=== PATIENT | male | born 1950 | race Caucasian/White ===

== ENCOUNTER 2020-03-27 21:10 | Inpatient (IN) ==
[2020-03-28] MEDS ORDERED: Naloxone 0.4 MG/ML INJ IVP PRN ×2 (02:50→05:11)
[2020-03-28] MEDS ORDERED: Ondansetron ODT 4 MG TAB.RAPDIS SL PRN (05:11)
[2020-03-28] MEDS ORDERED: Acetaminophen 325 MG TABLET PO PRN (05:11)
[2020-03-28] MEDS ORDERED: Furosemide 40 MG/4 ML VIAL IVP ONE (05:16)
[2020-03-28] MEDS ORDERED: Ipratropium/Albuterol Neb 3 ML IH ONE (05:18)
[2020-03-28] MEDS ORDERED: Perflutren Lipid Microsphere 1.3 ML in 0.9 % Sodium Chloride 8.7 ML IVP PRN (05:19)
[2020-03-28 06:28] LABS: Bacteria,Urine Few per hpf (None-Few); Bilirubin,Urine Small (Negative); Blood,Urine Negative (Negative); Clarity,Urine Turbid (Clear); Color,Urine Dark-Yellow (Yellow); Glucose,Urine (UA) Normal (Normal); Hyaline Casts,Urine Many per lpf (None Seen); Ketones,Urine Negative (Negative); Leukocyte Esterase,Urine Negative (Negative); Mucus,Urine Few per lpf (None-Few); Nitrite,Urine Negative (Negative); PH,Urine 5.5 pH Units (5.0-8.0); Protein,Urine 30 mg/dL (Neg-Trace); RBC,Urine 0-3 per hpf (0-3); Specific Gravity,Urine 1.025 (1.010-1.025); Squamous Epithelial Cell,Urine Few per hpf (None-Few)
[2020-03-28 06:46] LABS: ABG Base Excess -4 mEq/L (-2 to 3); ABG HCO3 20 mEq/L (21-27); ABG Oxygen Saturation 96 % (95-98); ABG PCO2 35 mmHg (35-45); ABG PH 7.37 pH Units (7.32-7.45); ABG PO2 82 mmHg (85-104); ABG TCO2 21 mEq/L (20-26)
[2020-03-28] MEDS ORDERED: cefTRIAXone 2,000 MG in Water for inj. (sterile) 20 ML IVP SCH (07:00)
[2020-03-28 07:12] LABS: Immature Granulocytes % 3.4 % (0-4); Platelet Count 270 K/mcL (140-400)
[2020-03-28 07:13] LABS: Basophils # 0.1 K/mcL (0.0-0.2); Basophils % 0.4 %; Hematocrit 45.8 % (37.5-50.1); Lymphocytes # 0.6 K/mcL (0.6-4.6); Mean Corpuscular HGB Conc 32.8 g/dL (31.6-35.5); Mean Corpuscular Hemoglobin 30.5 pg (28.0-33.3); Mean Corpuscular Volume 93.3 fL (83.0-100.0); Mean Platelet Volume 9.7 fL (9.4-12.4); Monocytes % 6.2 %; Neutrophils # 27.7 K/mcL (1.6-8.9); Red Blood Count 4.91 M/mcL (4.19-5.50)
[2020-03-28 07:16] LABS: INR 3.2; Prothrombin Time 36.1 Seconds (9.4-12.1)
[2020-03-28 07:26] LABS: White Blood Count 31.5 K/mcL (4.3-11.1)
[2020-03-28 07:30] LABS: Platelet Estimate Normal (Normal)
[2020-03-28 07:31] LABS: Anisocytosis 1+ (Not Present); Toxic Granulation Present (Not Present)
[2020-03-28 08:01] LABS: Albumin 2.7 g/dL (3.5-5.7); Albumin/Globulin Ratio 0.8 (1.1-2.2); Bilirubin,Total 4.4 mg/dL (0.3-1.0); Calcium 8.6 mg/dL (8.6-10.3); Globulin 3.2 g/dL (2.4-3.5); Phosphorous 5.9 mg/dL (2.7-4.5); Potassium 6.4 mEq/L (3.5-5.1); Total Protein 5.9 g/dL (6.4-8.9)
[2020-03-28] MEDS: Nystatin Cream 15 GM TUBE TP SCH ×2 (08:18→21:59)
[2020-03-28] MEDS ORDERED: Calcium Gluconate 1gm/50mL 1 GM/50 ML BAG IVPB ONE (08:53)
[2020-03-28 09:10] LABS: Magnesium 2.4 mg/dL (1.6-2.6)
[2020-03-28] MEDS ORDERED: Isovue-370 500 ML BOTTLE IVP ONE ×5 (09:18→10:37)
[2020-03-28 09:37] LABS: Hepatitis B Surface Antigen Nonreactive (Nonreactive)
[2020-03-28] MEDS ORDERED: levoFLOXacin 750 MG/150 ML 750 MG/150 ML BAG IVPB SCH (09:45)
[2020-03-28] MEDS ORDERED: Vancomycin (wt based) 1,000 MG VIAL IVPB SCH (10:00)
[2020-03-28 10:06] LABS: Hepatitis C Virus Antibody Nonreactive (Nonreactive)
[2020-03-28 10:07] LABS: Hepatitis A Antibody IgM Nonreactive (Nonreactive); Hepatitis B Core IgM Nonreactive (Nonreactive)
[2020-03-28] MEDS ORDERED: Vancomycin 2,000 MG/520 ML IV.SOLN IVPB ONE (10:17)
[2020-03-28 10:23] LABS: Albumin 2.7 g/dL (3.5-5.7); Calcium 8.7 mg/dL (8.6-10.3); Phosphorous 6.1 mg/dL (2.7-4.5); Potassium 6.4 mEq/L (3.5-5.1)
[2020-03-28] MEDS ORDERED: *HR* Heparin 10,000 UNIT/10 ML VIAL IV PRN (10:23)
[2020-03-28] MEDS ORDERED: 0.9 % Sodium Chloride 250 ML IVC PRN (10:23)
[2020-03-28] MEDS ORDERED: Vancomycin 1 EACH in 0.9 % Sodium Chloride 250 ML IVPB SCH (11:00)
[2020-03-28] MEDS ORDERED: Ringers Solution, Lactated 1,000 ML IVC ONE (11:18)
[2020-03-28] MEDS ORDERED: Ringers Solution, Lactated 1,000 ML ONE (11:22)
[2020-03-28] MEDS ORDERED: Albumin Human 5% 12.5 GM/250 ML IV.SOLN ONE (11:23)
[2020-03-28] MEDS ORDERED: Albumin 25% 25gram/100mL 25 GM/100 ML IV.SOLN IVC SCH (11:30)
[2020-03-28] MEDS ORDERED: *HR* Norepinephrine 4 MG/4 ML VIAL IVC ONE (11:45)
[2020-03-28] MEDS ORDERED: 0.9 % Sodium Chloride 250 ML ONE (11:45)
[2020-03-28] MEDS ORDERED: Artificial Tears SOLN 15 ML BOTTLE BOTH EYES PRN (11:47)
[2020-03-28 12:51] LABS: ABG Base Excess -7 mEq/L (-2 to 3); ABG HCO3 19 mEq/L (21-27); ABG Oxygen Saturation 100 % (95-98); ABG PCO2 38 mmHg (35-45); ABG PH 7.31 pH Units (7.32-7.45); ABG PO2 354 mmHg (85-104); ABG TCO2 20 mEq/L (20-26); Blood Gas Modality AF; Blood Gas VT 500 cc
[2020-03-28] MEDS ORDERED: *HR* Heparin 5,000 UNIT/ML VIAL ONE (14:05)
[2020-03-28] MEDS ORDERED: 0.9 % Sodium Chloride 1,000 ML PRIME ONE ×2 (14:06)
[2020-03-28] MEDS ORDERED: *HR* Alteplase (Cathflo) 2 MG VIAL IVP PRN (14:06)
[2020-03-28] MEDS ORDERED: 0.9 % Sodium Chloride 1,000 ML PRIME SCH (14:15)
[2020-03-28] MEDS: levoFLOXacin 750 MG/150 ML 750 MG/150 ML BAG IVPB SCH (14:57)
[2020-03-28] MEDS: Piperacillin/Tazobactam 3.375 GM in 0.9 % Sodium Chloride Mini Bag 100 ML IVPB SCH ×2 (14:58→20:25)
[2020-03-28] MEDS: FentaNYL (PF) 1,000 MCG/100 ML IV.SOLN IVC SCH ×2 (14:58→20:25)
[2020-03-28 15:25] LABS: Bilirubin,Urine Small (Negative); Blood,Urine Large (Negative); Clarity,Urine Ex.Turbid (Clear); Color,Urine Dark-Yellow (Yellow); Glucose,Urine (UA) Normal (Normal); Ketones,Urine Negative (Negative); Leukocyte Esterase,Urine Large (Negative); Nitrite,Urine Negative (Negative); PH,Urine 5.5 pH Units (5.0-8.0); Protein,Urine 100 mg/dL (Neg-Trace); Specific Gravity,Urine 1.022 (1.010-1.025)
[2020-03-28] MEDS: Pantoprazole 40 MG VIAL IVP SCH (15:27)
[2020-03-28] MEDS: Artificial Tears SOLN 15 ML BOTTLE BOTH EYES SCH ×4 (15:27→23:02)
[2020-03-28 15:28] LABS: Creatinine,Urine 230 mg/dL; Protein/Creatinine Ratio,Urine 0.72 mg/mg (0.00-0.20); Sodium, Urine 18.1 mEq/L
[2020-03-28 15:36] LABS: Amphetamine Screen,Urine Negative ng/mL (Cutoff=1000); Barbiturate Screen,Urine Negative ng/mL (Cutoff=200); Benzodiazepines Screen,Urine Negative ng/mL (Cutoff=200); Cannabinoid Screen,Urine Negative ng/mL (Cutoff = 50); Cocaine Screen,Urine Negative ng/mL (Cutoff= 300); Opiate Screen,Urine Negative ng/mL (Cutoff=300); Phencyclidine Screen,Urine Negative ng/mL (Cutoff=25)
[2020-03-28 15:37] LABS: Rheumatoid Factor < 10 IU/mL (Less than 14)
[2020-03-28 15:44] LABS: Calcium 7.9 mg/dL (8.6-10.3); Potassium 6.5 mEq/L (3.5-5.1)
[2020-03-28 15:48] LABS: Hepatitis B Surface Antibody < 3.10 mIU/mL
[2020-03-28 16:16] LABS: Hyaline Casts,Urine Few per lpf (None Seen)
[2020-03-28 16:17] LABS: Bacteria,Urine Many per hpf (None-Few); RBC,Urine 30-50 per hpf (0-3); Renal Epithelial Cells,Urine Few per hpf (None-Few); Squamous Epithelial Cell,Urine Few per hpf (None-Few); Transitional Epi Cells,Urine Moderate per hpf (None-Few); WBC,Urine TNTC per hpf (0-3)
[2020-03-28 16:30] LABS: Influenza A PCR Negative (Negative); Influenza B PCR Negative (Negative); Resp. Syncytial Virus PCR Negative (Negative)
[2020-03-28 16:43] LABS: SARS-CoV-2 by PCR (In House) Negative (Negative)
[2020-03-28] MEDS ORDERED: *HR* Heparin 5,000 UNIT/ML VIAL SQ SCH (18:00)
[2020-03-28] MEDS: Dexmedetomidine HCl 400 MCG/100 ML MLS IVC SCH ×2 (19:15→20:26)
[2020-03-28] MEDS: Norepinephrine 4 MG/254 ML IV.SOLN IVC SCH (19:20)
[2020-03-28 20:20] LABS: Complement C3 68 mg/dL (87-200)
[2020-03-28] MEDS: Chlorhexidine Rinse 15 ML MOUTHWASH MM SCH (20:25)
[2020-03-28] MEDS: 0.9 % Sodium Chloride 1,000 ML PRIME SCH ×2 (20:35→20:46)
[2020-03-28] MEDS: PrismaSATE BGK 4/2.5 5,000 ML CRRT SCH ×4 (20:47→23:52)
[2020-03-28] MEDS ORDERED: *HR* Etomidate 20 MG/10 ML AMPUL IVP ONE (22:34)
[2020-03-28] MEDS ORDERED: *HR* Rocuronium Bromide 50 MG/5 ML VIAL IVP ONE (22:34)
[2020-03-29] MEDS: PrismaSATE BGK 4/2.5 5,000 ML CRRT SCH ×12 (03:01→22:38)
[2020-03-29] MEDS: FentaNYL (PF) 1,000 MCG/100 ML IV.SOLN IVC SCH ×3 (03:02→17:51)
[2020-03-29] MEDS: Artificial Tears SOLN 15 ML BOTTLE BOTH EYES SCH ×6 (03:07→23:02)
[2020-03-29] MEDS: Piperacillin/Tazobactam 3.375 GM in 0.9 % Sodium Chloride Mini Bag 100 ML IVPB SCH ×3 (03:07→19:28)
[2020-03-29 03:33] LABS: ABG Base Excess 0 mEq/L (-2 to 3); ABG HCO3 26 mEq/L (21-27); ABG Oxygen Saturation 98 % (95-98); ABG PCO2 46 mmHg (35-45); ABG PH 7.36 pH Units (7.32-7.45); ABG PO2 106 mmHg (85-104); ABG TCO2 27 mEq/L (20-26); Blood Gas Modality ASSIST CONTROL; Blood Gas VT 500 cc
[2020-03-29 03:38] LABS: Basophils # 0.1 K/mcL (0.0-0.2); Basophils % 0.5 %; Hematocrit 39.3 % (37.5-50.1); Immature Granulocytes % 3.4 % (0-4); Lymphocytes # 1.1 K/mcL (0.6-4.6); Lymphocytes % 4.9 %; Mean Corpuscular HGB Conc 31.8 g/dL (31.6-35.5); Mean Corpuscular Hemoglobin 29.3 pg (28.0-33.3); Mean Corpuscular Volume 92.3 fL (83.0-100.0); Mean Platelet Volume 9.8 fL (9.4-12.4); Monocytes # 1.2 K/mcL (0.0-1.3); Monocytes % 5.5 %; Neutrophils # 18.7 K/mcL (1.6-8.9); Platelet Count 175 K/mcL (140-400); Red Blood Count 4.26 M/mcL (4.19-5.50); Red Cell Distribution Width 14.6 % (11.5-14.5); Segmented Neutrophils % 85.7 %; White Blood Count 21.8 K/mcL (4.3-11.1)
[2020-03-29 03:48] LABS: Hemoglobin 12.5 g/dL (12.9-16.9)
[2020-03-29 04:27] LABS: Albumin 2.6 g/dL (3.5-5.7); Albumin/Globulin Ratio 1.1 (1.1-2.2); Bilirubin,Total 4.2 mg/dL (0.3-1.0); Calcium 7.8 mg/dL (8.6-10.3); Globulin 2.3 g/dL (2.4-3.5); Total Protein 4.9 g/dL (6.4-8.9)
[2020-03-29] MEDS ORDERED: Vancomycin 2,000 MG/520 ML IV.SOLN IVPB SCH (06:00)
[2020-03-29] MEDS: Pantoprazole 40 MG VIAL IVP SCH (07:44)
[2020-03-29] MEDS: Nystatin Cream 15 GM TUBE TP SCH ×2 (07:44→19:31)
[2020-03-29] MEDS: Chlorhexidine Rinse 15 ML MOUTHWASH MM SCH ×2 (07:44→19:49)
[2020-03-29] MEDS: Dexmedetomidine HCl 400 MCG/100 ML MLS IVC SCH ×4 (09:10→19:29)
[2020-03-29] MEDS: Norepinephrine 4 MG/254 ML IV.SOLN IVC SCH ×4 (11:35→22:01)
[2020-03-29] MEDS ORDERED: 0.9 % Sodium Chloride 500 ML ONE (14:30)
[2020-03-29] MEDS ORDERED: *HR* Heparin 5,000 UNIT/ML VIAL ONE (14:37)
[2020-03-29] MEDS ORDERED: Albumin Human 5% 25.0 GM/500 ML IV.SOLN ONE (15:13)
[2020-03-29] MEDS: *HR* Heparin 5,000 UNIT/ML VIAL CRRT PRN ×2 (15:25→15:29)
[2020-03-29] MEDS: Albumin Human 5% 12.5 GM/250 ML IV.SOLN IVC SCH ×2 (15:32→15:45)
[2020-03-29] MEDS: Vasopressin 40 UNIT in D5% in Water 100 ML IVC SCH (16:05)
[2020-03-29] MEDS ORDERED: Calcium Gluconate 1gm/50mL 1 GM/50 ML BAG IVPB ONE (16:27)
[2020-03-29] MEDS: Phenylephrine 10 MG in 0.9 % Sodium Chloride 250 ML IVC SCH (19:26)
[2020-03-29] MEDS: 0.9 % Sodium Chloride 1,000 ML PRIME SCH ×2 (19:31→19:42)
[2020-03-30] MEDS: PrismaSATE BGK 4/2.5 5,000 ML CRRT SCH ×14 (01:37→20:07)
[2020-03-30] MEDS: Norepinephrine 4 MG/254 ML IV.SOLN IVC SCH ×4 (02:01→22:17)
[2020-03-30] MEDS: FentaNYL (PF) 1,000 MCG/100 ML IV.SOLN IVC SCH ×3 (02:02→19:06)
[2020-03-30] MEDS: Piperacillin/Tazobactam 3.375 GM in 0.9 % Sodium Chloride Mini Bag 100 ML IVPB SCH ×3 (03:43→19:06)
[2020-03-30] MEDS: Artificial Tears SOLN 15 ML BOTTLE BOTH EYES SCH ×6 (03:43→23:59)
[2020-03-30 04:03] LABS: ABG Base Excess -2 mEq/L (-2 to 3); ABG HCO3 25 mEq/L (21-27); ABG Oxygen Saturation 98 % (95-98); ABG PCO2 48 mmHg (35-45); ABG PH 7.32 pH Units (7.32-7.45); ABG PO2 115 mmHg (85-104); ABG TCO2 26 mEq/L (20-26); Blood Gas Modality AF; Blood Gas VT 500 cc
[2020-03-30 04:04] LABS: White Blood Count 23.8 K/mcL (4.3-11.1)
[2020-03-30 04:05] LABS: Hematocrit 41.5 % (37.5-50.1); Hemoglobin 12.9 g/dL (12.9-16.9); Mean Corpuscular HGB Conc 31.1 g/dL (31.6-35.5); Mean Corpuscular Hemoglobin 29.3 pg (28.0-33.3); Mean Corpuscular Volume 94.1 fL (83.0-100.0); Mean Platelet Volume 9.6 fL (9.4-12.4); Nucleated Red Blood Cells 0.3 /100 WBC (0); Platelet Count 186 K/mcL (140-400); Red Blood Count 4.41 M/mcL (4.19-5.50); Red Cell Distribution Width 14.9 % (11.5-14.5)
[2020-03-30 04:08] LABS: INR 2.3; Prothrombin Time 25.7 Seconds (9.4-12.1)
[2020-03-30 04:33] LABS: Alanine Aminotransferase 473 Units/L (7-52); Albumin 2.8 g/dL (3.5-5.7); Albumin/Globulin Ratio 1.2 (1.1-2.2); Albumin/Globulin Ratio 1.3 (1.1-2.2); Alkaline Phosphatase 579 Units/L (34-104); Aspartate Amino Transferase 1646 Units/L (13-39); BUN/Creatinine Ratio 18 (6-26); Bilirubin,Direct 2.8 mg/dL (0.0-0.2); Bilirubin,Indirect 1.6 mg/dL (0.0-1.0); Bilirubin,Total 4.2 mg/dL (0.3-1.0); Bilirubin,Total 4.4 mg/dL (0.3-1.0); Blood Urea Nitrogen 25 mg/dL (8-23); Calcium 7.9 mg/dL (8.6-10.3); Carbon Dioxide 24 mEq/L (23-29); Chloride 102 mEq/L (98-107); Globulin 2.2 g/dL (2.4-3.5); Globulin 2.3 g/dL (2.4-3.5); Glucose 133 mg/dL (70-105); Osmolality,Calculated 286 (280-300); Potassium 4.9 mEq/L (3.5-5.1); Sodium 135 mEq/L (136-145); Total Protein 5.1 g/dL (6.4-8.9); eGFR For African Americans > 60 (> 60); eGFR For Non-African Americans 51 (> 60)
[2020-03-30 04:35] LABS: Large Platelets Present (Not Present); Monocytes # 0.5 K/mcL (0.0-1.3); Neutrophils # 21.4 K/mcL (1.6-8.9); Platelet Estimate Normal (Normal); Toxic Granulation Present (Not Present)
[2020-03-30] MEDS: Chlorhexidine Rinse 15 ML MOUTHWASH MM SCH ×2 (08:12→19:20)
[2020-03-30] MEDS: Pantoprazole 40 MG VIAL IVP SCH (08:12)
[2020-03-30] MEDS: Nystatin Cream 15 GM TUBE TP SCH ×2 (08:13→19:20)
[2020-03-30] MEDS ORDERED: *HR* Heparin 5,000 UNIT/ML VIAL ONE (11:50)
[2020-03-30] MEDS: levoFLOXacin 750 MG/150 ML 750 MG/150 ML BAG IVPB SCH (12:51)
[2020-03-30] MEDS: Vasopressin 40 UNIT in D5% in Water 100 ML IVC SCH (13:00)
[2020-03-30] MEDS: Albumin 25% 25gram/100mL 25 GM/100 ML IV.SOLN IVPB SCH (16:32)
[2020-03-30] MEDS: Hydrocortisone Sodium Succ 100 MG/2 ML VIAL IVP SCH (16:32)
[2020-03-30] MEDS: Phenylephrine 10 MG in 0.9 % Sodium Chloride 250 ML IVC SCH (19:06)
[2020-03-31] MEDS: PrismaSATE BGK 4/2.5 5,000 ML CRRT SCH ×14 (00:01→18:00)
[2020-03-31] MEDS: Hydrocortisone Sodium Succ 100 MG/2 ML VIAL IVP SCH ×3 (00:16→17:43)
[2020-03-31] MEDS: Albumin 25% 25gram/100mL 25 GM/100 ML IV.SOLN IVPB SCH ×3 (00:16→17:43)
[2020-03-31] MEDS: Norepinephrine 4 MG/254 ML IV.SOLN IVC SCH (00:58)
[2020-03-31] MEDS: FentaNYL (PF) 1,000 MCG/100 ML IV.SOLN IVC SCH ×2 (02:00→08:20)
[2020-03-31] MEDS: Piperacillin/Tazobactam 3.375 GM in 0.9 % Sodium Chloride Mini Bag 100 ML IVPB SCH ×3 (03:07→20:21)
[2020-03-31] MEDS: Artificial Tears SOLN 15 ML BOTTLE BOTH EYES SCH ×5 (03:07→20:21)
[2020-03-31] MEDS: Phenylephrine 10 MG in 0.9 % Sodium Chloride 250 ML IVC SCH ×3 (03:08→10:00)
[2020-03-31] MEDS: Norepinephrine 8 MG in 0.9 % Sodium Chloride 250 ML IVC SCH ×4 (04:01→18:00)
[2020-03-31 04:03] LABS: ABG Base Excess -3 mEq/L (-2 to 3); ABG HCO3 25 mEq/L (21-27); ABG Oxygen Saturation 94 % (95-98); ABG PCO2 53 mmHg (35-45); ABG PH 7.28 pH Units (7.32-7.45); ABG PO2 82 mmHg (85-104); ABG TCO2 26 mEq/L (20-26); Blood Gas Modality ASSIST CONTROL; Blood Gas VT 500 cc
[2020-03-31 04:37] LABS: Mean Corpuscular HGB Conc 30.6 g/dL (31.6-35.5)
[2020-03-31 04:39] LABS: Hematocrit 42.1 % (37.5-50.1); Hemoglobin 12.9 g/dL (12.9-16.9); Mean Corpuscular Hemoglobin 30.1 pg (28.0-33.3); Mean Corpuscular Volume 98.1 fL (83.0-100.0); Mean Platelet Volume 10.1 fL (9.4-12.4); Nucleated Red Blood Cells 0.4 /100 WBC (0); Platelet Count 150 K/mcL (140-400); Red Blood Count 4.29 M/mcL (4.19-5.50); White Blood Count 25.1 K/mcL (4.3-11.1)
[2020-03-31 04:40] LABS: INR 1.8; Prothrombin Time 20.3 Seconds (9.4-12.1)
[2020-03-31 05:02] LABS: Alanine Aminotransferase 365 Units/L (7-52); Albumin 3.2 g/dL (3.5-5.7); Albumin/Globulin Ratio 1.5 (1.1-2.2); Alkaline Phosphatase 485 Units/L (34-104); Aspartate Amino Transferase 813 Units/L (13-39); BUN/Creatinine Ratio 15 (6-26); Bilirubin,Direct 3.4 mg/dL (0.0-0.2); Bilirubin,Indirect 1.8 mg/dL (0.0-1.0); Bilirubin,Total 5.2 mg/dL (0.3-1.0); Blood Urea Nitrogen 19 mg/dL (8-23); Calcium 7.3 mg/dL (8.6-10.3); Carbon Dioxide 23 mEq/L (23-29); Chloride 102 mEq/L (98-107); Globulin 2.2 g/dL (2.4-3.5); Glucose 119 mg/dL (70-105); Osmolality,Calculated 285 (280-300); Potassium 4.9 mEq/L (3.5-5.1); Sodium 136 mEq/L (136-145); Total Protein 5.4 g/dL (6.4-8.9); eGFR For African Americans > 60 (> 60); eGFR For Non-African Americans 58 (> 60)
[2020-03-31 05:17] LABS: Lymphocytes # 1.5 K/mcL (0.6-4.6); Neutrophils # 22.6 K/mcL (1.6-8.9)
[2020-03-31 05:18] LABS: Platelet Estimate Normal (Normal); Toxic Granulation Present (Not Present)
[2020-03-31] MEDS: Chlorhexidine Rinse 15 ML MOUTHWASH MM SCH ×2 (07:31→20:22)
[2020-03-31] MEDS: Pantoprazole 40 MG VIAL IVP SCH (07:32)
[2020-03-31] MEDS: Nystatin Cream 15 GM TUBE TP SCH ×2 (07:33→20:22)
[2020-03-31] MEDS ORDERED: *HR* Heparin 5,000 UNIT/ML VIAL ONE (08:05)
[2020-03-31] MEDS ORDERED: FentaNYL (PF) 2,500 MCG/50 ML IV.SOLN IVC SCH (12:30)
[2020-03-31] MEDS ORDERED: Phenylephrine 50 MG in 0.9 % Sodium Chloride 250 ML IVC SCH (12:30)
[2020-03-31] MEDS: Vasopressin 40 UNIT in D5% in Water 100 ML IVC SCH (14:00)
[2020-03-31 18:25] LABS: ANA IgG by ELISA NONE DETECTED (None Detected)
[2020-03-31 18:32] LABS: GBM IgG Multiplex Bead Assay 0 AU/mL (0-19); Glomerular Basement Memb IgG NEGATIVE (Negative); Serine Protease-3 Antibody 0 AU/mL (0-19)
[2020-03-31 19:02] VITALS: BP 121/39
[2020-03-31] MEDS: Dexmedetomidine HCl 400 MCG/100 ML MLS IVC SCH ×2 (20:21→20:22)
[2020-04-01 08:37] LABS: Alpha 2 Globulin (PEP) 0.64 g/dL (0.48-1.05); Beta Globulin (PEP) 0.37 g/dL (0.48-1.10)
[2020-04-01 09:09] LABS: Immunoglobulin A 215 mg/dL (68-408); Immunoglobulin G 895 mg/dL (768-1632); Immunoglobulin M 93 mg/dL (35-263)
[2020-04-01 09:10] LABS: IFE Reflexed IFE Done
[2020-04-04 18:46] LABS: HIV-1&2 Antibody & p24 Ag Nonreactive (Nonreactive)
== END 2020-03-31 22:35 | disposition expired | DRG 871 ==
LOC: 2ANU → ICNU 03-28 11:36
PROVIDERS: ADMIT Family Medicine; ATTEND Family Medicine